=== PATIENT | male | born 1970 | race Caucasian/White ===

== ENCOUNTER 2023-02-04 01:32 | Inpatient (IN) | payer OTHER ==
[~2023-02-04] VITALS: Ht 160 cm; Wt 63.0 kg
[2023-02-04 01:32] VITALS: BP 132/90; PULSE 105; RESP 18; TEMP 103; O2SAT 98
[~2023-02-04 01:32] MED LIST: CIPR500T9 PO; IBUP-1801 PO
[2023-02-04] MEDS ORDERED: NACL 0.9% 1,000 ML IV SCH (02:35)
[2023-02-04] MEDS ORDERED: HYDROmorphone PFS 2 MG/ML SYR IM ONE (02:35)
[2023-02-04] MEDS ORDERED: ACETAMINOPHEN EXTRA STRENGTH 500 MG TAB PO ONE (02:35)
[2023-02-04] MEDS ORDERED: KETOROLAC 15 MG/ML VIAL IVP ONE (02:35)
[2023-02-04 02:52] LABS: HEMATOCRIT 42.4 % (36-52); HEMOGLOBIN 14.8 g/dL (12.0-18.0); MEAN CORPUSCULAR HEMOGLOBIN 31 pg (27-31); MEAN CORPUSCULAR HGB CONC 35 g/dL (33-37); MEAN CORPUSCULAR VOLUME 88.2 fL (80-94); PLATELET COUNT (AUTO) 182 K/uL (140-450); RED BLOOD CELL COUNT(AUTO) 4.81 MIL/uL (4.20-6.10); RED CELL DISTRIBUTION WIDTH 13.5 % (11.6-13.7); WHITE BLOOD COUNT (AUTO) 2.1 K/uL (4.8-10.8)
[2023-02-04 03:18] LABS: ALBUMIN 3.2 g/dL (3.4-5.0); ANION GAP 12.3 (8-16); CALCIUM 8.6 mg/dL (8.5-10.1); CARBON DIOXIDE 25.7 mmol/L (21-32); CREATININE 1.5 mg/dL (0.6-1.3); TOTAL BILIRUBIN 1.6 mg/dL (0.0-1.0)
[2023-02-04 03:44] LABS: LYMPHOCYTES % (MANUAL) 20 % (20-46); MONOCYTES % (MANUAL) 2 % (5-12)
[2023-02-04] MEDS ORDERED: NACL 0.9% 1,000 ML IV ONE (05:15)
[2023-02-04] MEDS ORDERED: PIPERACILLIN/TAZOBACTAM 3.375 GM in DEXTROSE 5% 50 ML IV ONE (09:20)
[2023-02-04] MEDS ORDERED: MORPHINE SULFATE 4 MG/ML SYR IVP PRN ×2 (10:30→13:05)
[2023-02-04] MEDS ORDERED: PIPERACILLIN/TAZOBACTAM 3.375 GM VIAL IV ONE ×3 (10:31→18:46)
[2023-02-04 11:30] VITALS: RESP 18; O2SAT 98
[2023-02-04] MEDS ORDERED: ACETAMINOPHEN 325 MG TAB PO PRN (12:15)
[2023-02-04] MEDS ORDERED: HYDROcodone/APAP 7.5/325 MG 1 TAB PO PRN (12:15)
[2023-02-04] MEDS ORDERED: MAG SULF 2000 MG/WATER PREMIX 50 ML IV PRN (12:15)
[2023-02-04] MEDS ORDERED: ONDANSETRON 4 MG/2 ML VIAL IVP PRN ×2 (12:15→17:20)
[2023-02-04] MEDS ORDERED: POTASSIUM CHLORIDE 10 MEQ TABER PO PRN (12:15)
[2023-02-04 13:29] LABS: LACTIC ACID 2.2 mmol/L (0.4-2.0)
[2023-02-04 13:31] LABS: INR 1.07 (0.8-1.2); PARTIAL THROMBOPLASTIN TIME 31.6 secs (22-35.6); PROTHROMBIN TIME 11.2 secs (10.8-13.4)
[2023-02-04 13:33] LABS: AMYLASE 71 U/L (25-115); CHOL/HDL RATIO 2.4 (1-4.5); CHOLESTEROL 154 mg/dL (<200); FREE T4 (FREE THYROXINE) 1.13 ng/dL (0.76-1.46); HDL CHOLESTEROL 65 mg/dL (40-60); LDL (CALC) 76 mg/dL (60-100); LIPASE 76 U/L (73-393); MAGNESIUM 1.7 mg/dL (1.8-2.4); PHOSPHORUS 3.2 mg/dL (2.5-4.9); THYROID STIMULATING HORMONE 0.37 uIU/mL (0.34-3.74); TRIGLYCERIDES 66 mg/dL (30-150)
[2023-02-04] MEDS: NACL 0.9% 1,000 ML IV SCH ×3 (15:29→22:58)
[2023-02-04 16:00] VITALS: BP 90/57; PULSE 97; RESP 18; TEMP 101.4; O2SAT 97
[2023-02-04] MEDS ORDERED: SUCCINYLCHOLINE CHLORIDE 200 MG/10 ML VIAL IVP ONE ×2 (17:20→18:00)
[2023-02-04] MEDS ORDERED: HYDROmorphone 1 MG/ML AMP IVP PRN (17:20)
[2023-02-04] MEDS ORDERED: MEPERIDINE 25 MG/ML SYR IVP PRN (17:20)
[2023-02-04] MEDS ORDERED: PROPOFOL 200 MG/20 ML VIAL IV ONE ×2 (17:20→18:00)
[2023-02-04] MEDS ORDERED: diphenhydrAMINE 50 MG/ML VIAL IVP PRN (17:20)
[2023-02-04] MEDS: LACTATED RINGERS 1,000 ML IV SCH (17:20)
[2023-02-04] MEDS ORDERED: fentaNYL citrate 0.05 MG/ML VIAL ONE (17:20)
[2023-02-04] MEDS ORDERED: LIDOCAINE MPF 1% 5 ML ONE (17:39)
[2023-02-04] MEDS ORDERED: BUPIVACAINE-MPF/EPI 0.5% 30 ML VIAL INJ ONE (17:39)
[2023-02-04] MEDS ORDERED: LIDOCAINE MPF 1% 10 ML ONE (17:40)
[2023-02-04] MEDS ORDERED: ROCURONIUM 50 MG/5 ML VIAL IV ONE ×2 (18:00→18:34)
[2023-02-04] MEDS ORDERED: SUGAMMADEX SODIUM 200 MG/2 ML VIAL IV ONE ×2 (18:00→19:09)
[2023-02-04] MEDS ORDERED: MEPERIDINE 25 MG/ML SYR ONE ×2 (18:00→19:13)
[2023-02-04] MEDS ORDERED: SEVOFLURANE 250 ML BTL INH ONE (18:00)
[2023-02-04] MEDS ORDERED: DEXAMETHASONE 4 MG/ML VIAL ONE ×2 (18:00→18:54)
[2023-02-04] MEDS ORDERED: METOCLOPRAMIDE 10 MG/2 ML INJ VIAL ONE (18:00)
[2023-02-04] MEDS ORDERED: ePHEDrine 50 MG/ML VIAL ONE (18:36)
[2023-02-04] MEDS ORDERED: ONDANSETRON 4 MG/2 ML VIAL ONE (18:53)
[2023-02-04] MEDS ORDERED: ACET-8905 PO (19:25)
[2023-02-04 20:00] VITALS: BP 90/54; PULSE 94; RESP 18; TEMP 98.1; O2SAT 95
[2023-02-04] MEDS: PIPERACILLIN/TAZOBACTAM 3.375 GM in DEXTROSE 5% 50 ML IV SCH (20:59)
[2023-02-04 21:00] VITALS: PULSE 94; RESP 18; O2SAT 95
[2023-02-04] MEDS: DOCUSATE SODIUM 100 MG GELCAP PO SCH (21:04)
[2023-02-05] VITALS: BP 92/57; PULSE 91; RESP 18; TEMP 99.2; O2SAT 96
[2023-02-05] MEDS: LACTATED RINGERS 1,000 ML IV SCH (01:40)
[2023-02-05 04:00] VITALS: BP 90/57; PULSE 81; RESP 18; TEMP 97.9; O2SAT 99
[2023-02-05] MEDS: NACL 0.9% 1,000 ML IV SCH ×2 (04:41→10:34)
[2023-02-05] MEDS: PIPERACILLIN/TAZOBACTAM 3.375 GM in DEXTROSE 5% 50 ML IV SCH ×2 (04:42→13:09)
[2023-02-05 04:47] LABS: APPEARANCE,URINE CLOUDY (CLEAR); BILIRUBIN,URINE 2+ (NEGATIVE); BLOOD, URINE 3+ (NEGATIVE); COLOR,URINE BROWN (YELLOW); LEUKOCYTE ESTERASE ,URINE NEGATIVE (NEGATIVE); NITRITE, URINE POSITIVE (NEGATIVE); PH,URINE 5.5 (5.0-9.0); PROTEIN,URINE 3+ (NEGATIVE); UGLUCOSE NEGATIVE (NEGATIVE)
[2023-02-05 05:08] LABS: AMPHETAMINE, URINE NEGATIVE ng/ml (NEG <=1000); BARBITURATE, URINE NEGATIVE ng/ml (NEG <=200); BENZODIAZEPINE, URINE NEGATIVE ng/mL (NEG <=200); CANNABINOID, URINE NEGATIVE ng/mL (NEG <=50); COCAINE, URINE POSITIVE ng/mL (NEG <=300); OPIATE, URINE NEGATIVE ng/mL (NEG <=2000); PHENCYCLIDINE SCREEN,URINE NEGATIVE ng/mL (NEG <=25)
[2023-02-05 05:11] LABS: ICTOTEST NEGATIVE (NEGATIVE)
[2023-02-05 05:14] LABS: BACTERIA,URINE 4+ /HPF (None Seen); COARSE GRANULAR CASTS,URINE 0-10 /LPF (None Seen); MUCUS,URINE 3+ /LPF (None Seen); RBC,URINE 11-20 (MOD) /HPF (0-5); SQUAMOUS EPITHELIAL CELL,UR 4-10 (MOD) /LPF (0-3 (FEW)); TRICHOMONAS,URINE None Seen /HPF (None Seen); WBC,URINE 0-5 /HPF (0-5); YEAST,URINE None Seen /HPF (None Seen)
[2023-02-05 06:54] LABS: HEMOGLOBIN 11.8 g/dL (12.0-18.0); MEAN CORPUSCULAR HEMOGLOBIN 30 pg (27-31); MEAN CORPUSCULAR HGB CONC 34 g/dL (33-37); MEAN CORPUSCULAR VOLUME 90.3 fL (80-94); PLATELET COUNT (AUTO) 139 K/uL (140-450); RED BLOOD CELL COUNT(AUTO) 3.88 MIL/uL (4.20-6.10); RED CELL DISTRIBUTION WIDTH 14.4 % (11.6-13.7)
[2023-02-05 07:09] LABS: ANION GAP 13.3 (8-16); CALCIUM 7.4 mg/dL (8.5-10.1); CARBON DIOXIDE 22.3 mmol/L (21-32); CREATININE 1.4 mg/dL (0.6-1.3); POTASSIUM 4.6 mmol/L (3.5-5.1)
[2023-02-05 07:18] LABS: MAGNESIUM 2.6 mg/dL (1.8-2.4); PHOSPHORUS 2.6 mg/dL (2.5-4.9)
[2023-02-05 07:19] LABS: WHITE BLOOD COUNT (AUTO) 25.8 K/uL (4.8-10.8)
[2023-02-05 07:36] LABS: BASOPHILS % (MANUAL) 0 % (0-2); EOSINOPHILS % (MANUAL) 0 % (0-4); LYMPHOCYTES % (MANUAL) 3 % (20-46); MONOCYTES % (MANUAL) 3 % (5-12); PLATELET ESTIMATE SLIGHTLY DECREASED
[2023-02-05 08:00] VITALS: PULSE 98; RESP 18; O2SAT 98
[2023-02-05 08:07] VITALS: TEMP 97.2
[2023-02-05] MEDS: DOCUSATE SODIUM 100 MG GELCAP PO SCH (08:21)
[2023-02-05] MEDS ORDERED: NACL 0.9% 500 ML IV SCH (08:45)
[2023-02-05] MEDS ORDERED: PANTOPRAZOLE 40 MG INJ VIAL IVP SCH (09:00)
[2023-02-05 09:02] VITALS: BP 110/69; PULSE 80; RESP 18; TEMP 97.7; O2SAT 98
[2023-02-05] MEDS ORDERED: ACET-9531 PO (11:31)
[2023-02-05 12:18] VITALS: BP 110/69; PULSE 80; RESP 18; TEMP 98
[2023-02-06] MEDS ORDERED: METR-520 PO (10:02)
== END 2023-02-05 15:08 | disposition home or self-care (01) | DRG 853 ==
LOC: MED 01:32 → MTU 10:33
PROC: 0DTJ4ZZ Resection of Appendix, Percutaneous Endoscopic Approach (ICD-10-PCS; principal; 2023-02-04 17:30)
DX: A41.9 Sepsis, unspecified organism (principal); N17.0 Acute kidney failure with tubular necrosis; K35.80 Unspecified acute appendicitis; E44.1 Mild protein-calorie malnutrition; K56.7 Ileus, unspecified; I10 Essential (primary) hypertension; E87.6 Hypokalemia; E86.0 Dehydration; N40.0 Benign prostatic hyperplasia without lower urinary tract symptoms; K52.9 Noninfective gastroenteritis and colitis, unspecified; N28.9 Disorder of kidney and ureter, unspecified; Z20.822 Contact with and (suspected) exposure to COVID-19; K76.89 Other specified diseases of liver; Z68.24 Body mass index [BMI] 24.0-24.9, adult; Z79.1 Long term (current) use of non-steroidal anti-inflammatories (NSAID); Z79.899 Other long term (current) drug therapy
CPT/HCPCS: 36415; 71045; 80048; 80053; 80305; 81001; 82150; 83036; 83605; 83690; 83735; 83880; 84100; 84439; 84443; 84484; 85025; 85610; 85730; 87040; 87081; 87086; 88304; 93005; 96361; 96365; 96375; 99285; C9113; J0330; J1100; J1885; J2001; J2175; J2405; J2543; J2704; J2765; J3010; J3475; J3490; J7060; J7120; Q0092; Q9967